=== PATIENT | male | born 1965 | race Hispanic/Latino ===

== ENCOUNTER 2022-07-20 15:30 | Inpatient (IN) | payer MEDICARE ==
[~2022-07-20] VITALS: Ht 167.6 cm; Wt 83.9 kg
[2022-07-20 16:00] LABS: BASOPHILS # (AUTO) 0.1 (0.0-0.1); BASOPHILS % 0.7 % (0.0-1.0); EOSINOPHILS # (AUTO) 0.2 (0.0-0.4); EOSINOPHILS % 3.1 % (0.0-6.0); HEMATOCRIT 36.1 % (38.2-49.6); HEMOGLOBIN 11.4 g/dL (14.0-18.0); LYMPHOCYTES # (AUTO) 1.9 (1.0-3.2); MEAN CORPUSCULAR HEMOGLOBIN 28.1 pg (28-32); MEAN CORPUSCULAR HGB CONC 31.6 g/dL (31-35); MEAN CORPUSCULAR VOLUME 88.9 fL (81-99); MONOCYTES # (AUTO) 0.6 (0.2-0.8); MONOCYTES % 8.4 % (4.4-11.3); NEUTROPHILS % 59.7 % (38.7-80.0); PLATELET COUNT 276 x10e3/uL (140-360); RED BLOOD COUNT 4.06 x10e6/uL (4.3-5.7); RED CELL DISTRIBUTION WIDTH 13.2 % (11.7-14.4)
[2022-07-20] MEDS ORDERED: SODIUM CHLORIDE 0.9% 500ML 500 ML IV ONE (16:00)
[2022-07-20 16:07] LABS: INR 0.9
[2022-07-20 16:08] LABS: PARTIAL THROMBOPLASTIN TIME 25.8 seconds (23.8-35.5)
[2022-07-20 16:18] LABS: CREATINE KINASE MB 4.4 ng/mL (0-5.0)
[2022-07-20 16:34] LABS: ALBUMIN 3.9 g/dL (3.5-5.0); ALBUMIN/GLOBULIN RATIO 1.2 (0.8-2.0); ANION GAP 17.4 mmol/L (8-16); CALCIUM 8.9 mg/dL (8.4-10.2); CREATININE, SERUM 2.26 mg/dL (0.72-1.25); POTASSIUM 4.4 mmol/L (3.5-5.1)
[2022-07-20] MEDS ORDERED: IOPAMIDOL 370 MG/ML 100 ML INFUS..BTL INJ ONE (17:16)
[2022-07-20] MEDS ORDERED: SODIUM CHLORIDE 0.9% 100 ML ONE (17:16)
[2022-07-20] MEDS ORDERED: DEXTROSE 50% SYRINGE 50 ML IV PRN (18:15)
[2022-07-20] MEDS ORDERED: ONDANSETRON HCL INJ 2MG/ML 2ML 2 MG/ML VIAL IV PRN (18:15)
[2022-07-20] MEDS: SODIUM CHLORIDE 0.9% 1000ML 1,000 ML IV SCH (19:15)
[2022-07-20] MEDS: INSULIN REGULAR, HUMAN 100 UNIT/1 ML SQ SCH (21:00)
[2022-07-20] MEDS ORDERED: CLONIDINE HCL 0.1 MG TAB PO PRN (21:00)
[2022-07-20] MEDS ORDERED: ACETAMINOPHEN 325 MG TAB PO PRN (21:00)
[2022-07-20 21:10] VITALS: BP 158/80
[2022-07-20 21:50] VITALS: BP 151/61
[2022-07-21] VITALS (7 sets, daily range): BP systolic 114–147; BP diastolic 72–80
[2022-07-21 00:43] LABS: CREATINE KINASE MB 3.4 ng/mL (0-5.0)
[2022-07-21] MEDS ORDERED: NOVOLOG100 UNITS1 SQ (03:17)
[2022-07-21] MEDS ORDERED: GLIPIZIDE5 MG PO (03:17)
[2022-07-21] MEDS ORDERED: METFORMIN HCL500 MG PO (03:17)
[2022-07-21] MEDS ORDERED: LEVEMIR FL100 UNIT/1 SQ (03:17)
[2022-07-21] MEDS ORDERED: LISINOPRIL5 MG PO (03:17)
[2022-07-21] MEDS ORDERED: GABAPENTIN100 MG PO (03:17)
[2022-07-21] MEDS ORDERED: BACLOFEN10 MG PO (03:17)
[2022-07-21] MEDS: SODIUM CHLORIDE 0.9% 1000ML 1,000 ML IV SCH ×3 (05:27→16:50)
[2022-07-21 06:17] LABS: BASOPHILS # (AUTO) 0.1 (0.0-0.1); BASOPHILS % 0.9 % (0.0-1.0); EOSINOPHILS # (AUTO) 0.2 (0.0-0.4); HEMATOCRIT 34.3 % (38.2-49.6); LYMPHOCYTES # (AUTO) 1.5 (1.0-3.2); LYMPHOCYTES % 25.3 % (18.0-39.1); MEAN CORPUSCULAR HEMOGLOBIN 28.6 pg (28-32); MEAN CORPUSCULAR HGB CONC 32.1 g/dL (31-35); MEAN CORPUSCULAR VOLUME 89.1 fL (81-99); MONOCYTES # (AUTO) 0.5 (0.2-0.8); MONOCYTES % 8.9 % (4.4-11.3); NEUTROPHILS # (AUTO) 3.5 (2.1-6.9); NEUTROPHILS % 60.7 % (38.7-80.0); PLATELET COUNT 251 x10e3/uL (140-360); RED BLOOD COUNT 3.85 x10e6/uL (4.3-5.7); RED CELL DISTRIBUTION WIDTH 13.2 % (11.7-14.4)
[2022-07-21 06:41] LABS: ALBUMIN 3.4 g/dL (3.5-5.0); ALBUMIN/GLOBULIN RATIO 1.2 (0.8-2.0); ANION GAP 14.2 mmol/L (8-16); CALCIUM 8.7 mg/dL (8.4-10.2); CREATININE, SERUM 1.54 mg/dL (0.72-1.25); POTASSIUM 4.2 mmol/L (3.5-5.1)
[2022-07-21 06:59] LABS: CHOL/HDL RATIO 3.2 (3.9-4.7)
[2022-07-21 07:44] LABS: CREATINE KINASE MB 3.4 ng/mL (0-5.0)
[2022-07-21] MEDS: INSULIN REGULAR, HUMAN 100 UNIT/1 ML SQ SCH ×4 (08:50→20:51)
[2022-07-21] MEDS: ASPIRIN 81 MG CHEW TAB PO SCH (12:29)
[2022-07-21 12:55] LABS: FREE THYROXINE INDEX 2.2168 (1.4-3.8); THYROID STIMULATING HORMONE 1.745 uIU/mL (0.350-4.940)
[2022-07-21] MEDS: INSULIN LISPRO 100 UNIT/1 ML 3ML VIAL SQ SCH (16:31)
[2022-07-21] MEDS ORDERED: ATORVASTATIN 40 MG TAB PO SCH (21:00)
[2022-07-21] MEDS ORDERED: INSULIN GLARGINE 100 UNITS/ML VIAL SQ SCH (21:00)
[2022-07-21] MEDS ORDERED: NON-FORMULARY MEDICATION (Insulin Detemir (Levemir Flextouch) 10 UNITS) SQ SCH (21:00)
[2022-07-22] MEDS: SODIUM CHLORIDE 0.9% 1000ML 1,000 ML IV SCH ×2 (02:15→08:51)
[2022-07-22 06:19] LABS: ANION GAP 14.5 mmol/L (8-16); CALCIUM 8.7 mg/dL (8.4-10.2); CREATININE, SERUM 1.54 mg/dL (0.72-1.25); POTASSIUM 4.5 mmol/L (3.5-5.1)
[2022-07-22] MEDS ORDERED: GLIPIZIDE 5 MG TAB PO SCH (07:30)
[2022-07-22 07:36] VITALS: BP 136/78
[2022-07-22 08:10] VITALS: BP 136/78
[2022-07-22] MEDS: ASPIRIN 81 MG CHEW TAB PO SCH (08:51)
[2022-07-22] MEDS ORDERED: LISINOPRIL 2.5 MG TAB PO SCH (09:00)
[2022-07-22] MEDS: INSULIN LISPRO 100 UNIT/1 ML 3ML VIAL SQ SCH ×3 (09:19→15:23)
[2022-07-22] MEDS: INSULIN REGULAR, HUMAN 100 UNIT/1 ML SQ SCH ×3 (09:20→15:23)
[2022-07-22] MEDS ORDERED: ASPIRIN CHEW81 MG PO (11:11)
[2022-07-22] MEDS ORDERED: LIPITOR20 MG PO (11:11)
[2022-07-22 11:40] VITALS: BP 129/84
[2022-07-22 15:43] VITALS: BP 126/84
[2022-07-22] MEDS ORDERED: ONDANSETRON HCL 4 MG ORAL DISINTEGRATING TAB PO PRN (15:45)
== END 2022-07-22 17:05 | disposition home or self-care (01) | DRG 682 ==
LOC: VACCPMC 15:46 → ERHOLD 18:15 → MED/SURG3 21:00 → OBSVTOIN 07-22 09:00
PROVIDERS: ADMIT Internal Medicine; ATTEND Internal Medicine
DX: N17.9 Acute kidney failure, unspecified (principal); U07.1 COVID-19; I69.354 Hemiplegia and hemiparesis following cerebral infarction affecting left non-dominant side; E86.0 Dehydration; I10 Essential (primary) hypertension; E78.00 Pure hypercholesterolemia, unspecified; E11.9 Type 2 diabetes mellitus without complications; Z91.81 History of falling; R27.0 Ataxia, unspecified; Z79.4 Long term (current) use of insulin
CPT/HCPCS: 36415; 70496; 70498; 70551; 71045; 80048; 80053; 80061; 82550; 82553; 82607; 82746; 82948; 83036; 83735; 83880; 84436; 84443; 84479; 84484; 85025; 85610; 85730; 93005; 94799; 96361; 99251; 99284; G0378; J1817; J7030; J7040; J7050; Q9967